=== PATIENT | female | born 1960 | race African-American/Black ===

== ENCOUNTER 2016-07-28 10:28 | Emergency (ER) | payer MEDICARE, MEDICAID ==
[~2016-07-28] VITALS: Ht 167.6 cm; Wt 59.9 kg
[~2016-07-28 10:28] MED LIST: AMLODIPINE BES2.5 MG ORAL; AMOXICILLIN500 MG ORAL; AZITHROMYCIN250 MG ORAL; BACTRIM-DS1 EA ORAL; CARISOPRODOL350 MG ORAL; CYCLOBENZAPRIN7.5 MG ORAL; FLONASE1 SPRAYS; HYDROCODON-ACE1 EA15 ORAL; IBUPROFEN600 MG ORAL; MELOXICAM7.5 MG PO; NAPROXEN500 M2 ORAL; NKM; NORCO 5-325 TA1 EACH ORAL; POLYTRIM OP SOL10 ML OPHTHALM; PROMETHAZINE-D118 ML ORAL; ROBAXIN-750750 MG PO; SOMA350 MG PO; TYLENOL EXTRA500 MG ORAL; ZOLOFT50 MG ORAL
--- NOTE | 2016-07-28 10:54 | Emergency Room Report ---
History of Present Illness General Chief Complaint: Lower Back Pain or Injury Source: Patient Present Illness HPI Patient 55-year-old female who presented after increased low back pain as well as lower extremity pain. Patient reports having bilateral hand pain. Patient states that she's had prior history of cervical disc disease. Patient denies any new symptoms. Patient states she's had pains for at least several months. The patient had previously been seen pain management. She had been previously diagnosed with neuropathy. She reports having a burning tingling sensation to her lower extremities and upper extremities. Allergies: Coded Allergies: No Known Allergies (Unverified , 07/02/12) Patient History Reviewed Nursing Documentation: PMH: Agreed, PSxH: Agreed Nursing Documentation-PMH Past Medical History: No History, Except For Hx Hypertension: No Hx Pacemaker: No Hx Asthma: No Hx COPD: No Hx Diabetes: No Hx Cancer: No Hx Gastrointestinal Problems: No Hx Dialysis: No Hx Cerebrovascular Accident: No Hx Seizures: No Review of Systems All Other Systems: negative except mentioned in HPI Physical Exam Vital Signs Date Time Temp Pulse Resp B/P Pulse Ox O2 Delivery O2 Flow Rate FiO2 07/28/16 10:36 98.1 92 18 124/68 97 Room Air General Appearance: well appearing, no apparent distress, alert, GCS 15, non- toxic Head: normocephalic, atraumatic ENT: hearing grossly normal, normal voice Neck: full range of motion, supple Respiratory: no respiratory distress, speaking full sentences Musculoskeletal: normal inspection, no calf tenderness Neurologic: normal inspection, alert, oriented x3, responsive, vibratory pile driver III-XII nml as tested, normal gait Psychiatric: mood/affect normal Skin: no rash Medical Decision Making Diagnostic Impression: Primary Impression: Exacerbation of chronic back pain ER Course Patient presented for chronic pain. Differential diagnosis included was not limited to neuropathy, vasculitis, cervical stenosis, vitamin deficiency, arthritis among others. Patient's benign exam and does not appear to require any further imaging or laboratory testing at this time. This does not appear to be a change in the patient's long-standing chronic pain. Patient was given Toradol for pain. She was given a lidocaine patch. The patient is advised to follow up with her primary care physician for refills as needed of her pain medication Last Vital Signs Date Time Temp Pulse Resp B/P Pulse Ox O2 Delivery O2 Flow Rate FiO2 07/28/16 10:36 98.1 92 18 124/68 97 Room Air Status: improved Disposition: HOME, SELF-CARE Condition: Stable Dominic Garland July 28, 2016 10:54
[2016-07-28] MEDS ORDERED: Ketorolac 60mg Inj IM ONE (11:00)
[2016-07-28 11:15] VITALS: BP 124/68
== END 2016-07-28 11:20 | disposition home or self-care (01) ==
LOC: EMR 10:55
DX: G89.29 Other chronic pain (principal); M50.30 Other cervical disc degeneration, unspecified cervical region; G62.9 Polyneuropathy, unspecified
CPT/HCPCS: 96372; 99283

== ENCOUNTER 2017-01-26 16:45 | Emergency (ER) | payer OTHER, MEDICAID ==
[~2017-01-26] VITALS: Ht 162.6 cm; Wt 56.7 kg
[2017-01-26 17:01] VITALS: BP 136/79
[2017-01-26] MEDS ORDERED: Morphine Sulfate 4mg/ml Inj IM ONE (17:15)
[2017-01-26] MEDS ORDERED: AUGMENTIN 500-1 EACH ORAL (17:18)
[2017-01-26 17:25] VITALS: BP 136/79
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
== END 2017-01-26 17:43 | disposition home or self-care (01) ==
LOC: EMR 17:05
DX: S81.851A Open bite, right lower leg, initial encounter (principal); M54.40 Lumbago with sciatica, unspecified side; G89.29 Other chronic pain; W54.0XXA Bitten by dog, initial encounter; Y92.9 Unspecified place or not applicable
CPT/HCPCS: 96372; 99284; J2270

== ENCOUNTER 2017-05-12 17:51 | Emergency (ER) | payer OTHER, MEDICAID ==
[~2017-05-12] VITALS: Ht 167.6 cm; Wt 59.0 kg
[~2017-05-12 17:51] MED LIST changes: +AUGMENTIN 500-1 EACH ORAL
[2017-05-12 18:10] VITALS: BP 138/72
[2017-05-12] MEDS ORDERED: Ketorolac 60mg Inj IM ONE (18:30)
--- NOTE | 2017-05-12 18:57 | Emergency Room Report ---
History of Present Illness General Chief Complaint: Lower Back Pain or Injury Present Illness HPI 56-year-old female presents to the emergency department complaining of 9/10 in severity laceration of her chronic back pain and muscle spasms. She reports location of pain is primarily in the lower back however she has some spasms in the neck area and bilateral legs. Patient states that she has previously prescribed Valium or soma for muscle cramping in medication for her pain. Pt. reports today's presentation of symptoms is consistent with previous exacerbations in the past. Patient states that she had a chronic pain management Dr. however she has not been able to fill her medication for several months. Pt. reports her symptoms are have been present for 2 years. Patient states that she had an appointment for "injections" today however the doctor canceled on her. She denies any trauma or fall she denies fevers, chills, night sweats or recent spinal procedures. Denies history of neoplastic disease. She reports hx of neuropathy for which she takes 600Mg Gabapentin daily for. Denies hx of DM. no Claudication, recent travel or immobilization. Denies numbness tingling or loss of sensation or gross motor movements of the extremities, incontinence of bowel or bladder. Denies CP, Palpitations, LOC, AMS , dizziness, Changes in Vision, Sensation, paresthesias, or a sudden severe headache. Allergies: Coded Allergies: No Known Allergies (Unverified , 07/02/12) Patient History Past Medical History: see triage record, other - chronic back pain Past Surgical History: none Pertinent Family History: none Immunizations: UTD Reviewed Nursing Documentation: PMH: Agreed, PSxH: Agreed Nursing Documentation-PMH Hx Hypertension: No Hx Pacemaker: No Hx Asthma: No Hx COPD: No Hx Diabetes: No Hx Cancer: No Hx Gastrointestinal Problems: No Hx Dialysis: No Hx Cerebrovascular Accident: No Hx Seizures: No Review of Systems All Other Systems: negative except mentioned in HPI Physical Exam Vital Signs Date Time Temp Pulse Resp B/P (MAP) Pulse Ox O2 Delivery O2 Flow Rate FiO2 05/12/17 17:56 97.9 99 18 138/72 96 Room Air 97.9 Sp02 EP Interpretation: reviewed, normal General Appearance: no apparent distress, alert, GCS 15, non-toxic Head: normocephalic, atraumatic Eyes: bilateral eye normal inspection, bilateral eye PERRL ENT: hearing grossly normal, normal voice Neck: full range of motion Respiratory: chest non-tender, lungs clear, normal breath sounds, speaking full sentences Cardiovascular #1: regular rate, rhythm, no edema, normal capillary refill Gastrointestinal: non tender, soft Genitourinary: normal inspection, no CVA tenderness Musculoskeletal: back normal, gait/station normal, normal range of motion, tender - TTP to lumbar and cervical paraspinal musculature primarily on the left side. no midlne ttp or spinous process tenderness. pt. ambulatory. Neurologic: alert, oriented x3, responsive, motor strength/tone normal, sensory intact, speech normal, grossly normal Psychiatric: judgement/insight normal Skin: normal color, no rash, warm/dry, well hydrated Medical Decision Making PA Attestation Dr. Fu is my supervising Physician whom patient management has been discussed with. Diagnostic Impression: Primary Impression: Exacerbation of chronic back pain ER Course 56-year-old female presents to the emergency department complaining of 9/10 in severity laceration of her chronic back pain and muscle spasms. She reports location of pain is primarily in the lower back however she has some spasms in the neck area and bilateral legs. Patient states that she has previously prescribed Valium or soma for muscle cramping in medication for her pain. Pt. reports today's presentation of symptoms is consistent with previous exacerbations in the past. Patient states that she had a chronic pain management Dr. however she has not been able to fill her medication for several months. Pt. reports her symptoms are have been present for 2 years. Patient states that she had an appointment for "injections" today however the doctor canceled on her. She denies any trauma or fall she denies fevers, chills, night sweats or recent spinal procedures. Denies history of neoplastic disease. She reports hx of neuropathy for which she takes 600Mg Gabapentin daily for. Denies hx of DM. no Claudication, recent travel or immobilization. Denies numbness tingling or loss of sensation or gross motor movements of the extremities, incontinence of bowel or bladder. Denies CP, Palpitations, LOC, AMS , dizziness, Changes in Vision, Sensation, paresthesias, or a sudden severe headache. Ddx considered: epidural abscess, fracture, sprain/strain, meningitis, spinal chord injury. Vital signs reviewed and are WNL during ED visit. Pt. is afebrile with no signs of infection No new symptoms, and denies recent trauma. No saddle anesthesia noted, Pt. denies incontinence Neurovascular is intact ROM is limited due to pain * Mild Tenderness to palpation to paraspinal muscles of the lower back and cervical area primarily on the left side, no spinous process tenderness, no midline tenderness. *Pt. describes pain today as moderate and radiates across the lower back. ORDERS: none warranted at this time. INTERVENTIONS: - 20mg IM Toradol D/W Pt. that for further pain management is it recommended to consult PCP or a Chronic Pain management doctor. A provider who can safely prescribe controlled substances with close follow up. --Review of her CURES REPORT shows she was regularly rx'd muscle relaxers and opiates by the same each time, and last fill was in January 2017. DISCHARGE: At this time pt. is stable for d/c to home. Will provide printed patient care instructions, and any necessary prescriptions. Care plan and follow up instructions have been discussed with the patient prior to discharge. Last Vital Signs Date Time Temp Pulse Resp B/P (MAP) Pulse Ox O2 Delivery O2 Flow Rate FiO2 05/12/17 18:53 97.9 05/12/17 18:10 18 138/72 96 Room Air 05/12/17 17:56 99 Disposition: HOME, SELF-CARE Condition: Stable Scripts Lidocaine (Lidoderm) 1 Each Adh..patch 1 PATCH TOPIC DAILY, #30 PATCH 0 Refills Patch(es) may remain in place for up to 12 hours in any 24-hour period. Prov: Lucila Donaldson 05/12/17 Methocarbamol* (ROBAXIN-750*) 750 Mg Tablet 750 MG PO QID, #28 TAB 0 Refills Prov: Lucila Donaldson 05/12/17 Patient Instructions: Back Pain, Adult Additional Instructions: Take medications as directed. Follow up with a Primary Care Provider in 3-5 days, even if your symptoms have resolved. --Please review list of primary care clinics, if you do not already have a primary care provider Return sooner to ED if new symptoms occur, or current symptoms become worse. Do not drink alcohol, drive, or operate heavy machinery while taking Robaxin as this may cause drowsiness. - Please note that this Emergency Department Report was dictated using [employer] tightener technology software, occasionally this can lead to erroneous entry secondary to interpretation by the dictation equipment. Lucila Donaldson May 12, 2017 18:57
[2017-05-12] MEDS ORDERED: ROBAXIN-750750 MG PO (18:59)
[2017-05-12] MEDS ORDERED: LIDODERM700 M1 TOPIC (18:59)
[2017-05-12 19:13] VITALS: BP 138/72
== END 2017-05-12 19:07 | disposition home or self-care (01) ==
LOC: EMR 19:07
DX: M54.5 Low back pain (principal); G89.29 Other chronic pain
CPT/HCPCS: 96372; 99283

== ENCOUNTER 2017-05-25 08:27 | Emergency (ER) | payer OTHER, MEDICAID ==
[~2017-05-25] VITALS: Ht 167.6 cm; Wt 59.9 kg
[~2017-05-25 08:27] MED LIST changes: +LIDODERM700 M1 TOPIC
[2017-05-25 09:08] VITALS: BP 130/76
[2017-05-25] MEDS ORDERED: Ketorolac 60mg Inj IM ONE (09:15)
[2017-05-25] MEDS ORDERED: LIDOCAINE700 M1 TP (09:16)
[2017-05-25 09:34] VITALS: BP 130/76
--- NOTE | 2017-05-25 09:37 | Emergency Room Report ---
History of Present Illness General Chief Complaint: Pain Source: Patient, Medical Record Present Illness HPI Patient is a 56-year-old female presented after increased pain to her hands as well as to her feet. Patient reports having prior history of back pain is currently in pain management. Patient stated that she was here several days ago and was given pain injection which helped somewhat. Patient had reported prior history of neuropathy. She denies any nausea or vomiting. She had not been having any chest pain. She reports having chronic low back pain. She denies any bowel or bladder dysfunction. Allergies: Coded Allergies: No Known Allergies (Unverified , 07/02/12) Patient History Past Medical History: see triage record Last Menstrual Period: menopause Reviewed Nursing Documentation: PMH: Agreed, PSxH: Agreed Nursing Documentation-PMH Past Medical History: No History, Except For Hx Hypertension: No Hx Pacemaker: No Hx Asthma: No Hx COPD: No Hx Diabetes: No Hx Cancer: No Hx Gastrointestinal Problems: No Hx Dialysis: No Hx Cerebrovascular Accident: No Hx Seizures: No Review of Systems All Other Systems: negative except mentioned in HPI Physical Exam Vital Signs Date Time Temp Pulse Resp B/P (MAP) Pulse Ox O2 Delivery O2 Flow Rate FiO2 05/25/17 08:35 98.0 89 18 130/76 97 Room Air 98.1 General Appearance: well appearing, no apparent distress, alert, GCS 15, Chronically Ill Head: normocephalic, atraumatic ENT: hearing grossly normal, normal voice Neck: full range of motion, supple Respiratory: no respiratory distress, speaking full sentences Cardiovascular #1: normal peripheral pulses, regular rate, rhythm, no edema Gastrointestinal: normal inspection, soft Musculoskeletal: normal inspection, no calf tenderness Neurologic: normal inspection, alert, oriented x3, responsive, title searcher III-XII nml as tested, normal gait Psychiatric: mood/affect normal Skin: no rash, other - cracking to skin of fingers, no lacerations Medical Decision Making Diagnostic Impression: Primary Impression: Exacerbation of chronic back pain ER Course Patient presented for increased generalized pain. Differential diagnosis includes was not limited to medication withdrawal, arthritis, fracture, infection among others. Patient has a benign exam and does not appear to require any further imaging or laboratory testing at this time. Patient appears to have exacerbation of chronic pain. She was given Toradol for pain as well as a lidocaine patch.The patient was advised to follow up with her pain management doctor. Last Vital Signs Date Time Temp Pulse Resp B/P (MAP) Pulse Ox O2 Delivery O2 Flow Rate FiO2 05/25/17 09:17 98.1 05/25/17 09:08 18 130/76 97 Room Air 05/25/17 08:35 89 Status: improved Disposition: HOME, SELF-CARE Condition: Stable Scripts Lidocaine (Lidocaine) 1 Each Adh..patch 5 % TP DAILY, #7 PATCH Prov: Dominic Garland 05/25/17 Referrals: NOT CHOSEN IPA/MD,REFERRING (PCP) Patient Instructions: Chronic Pain Dominic Garland May 25, 2017 09:37
== END 2017-05-25 09:35 | disposition home or self-care (01) ==
LOC: EMR 09:30
DX: M54.9 Dorsalgia, unspecified (principal); G89.29 Other chronic pain
CPT/HCPCS: 96372; 99283

== ENCOUNTER 2017-06-03 19:22 | Emergency (ER) | payer OTHER, MEDICAID ==
[~2017-06-03] VITALS: Ht 167.6 cm; Wt 59.0 kg
[~2017-06-03 19:22] MED LIST changes: +LIDOCAINE700 M1 TP
[2017-06-03] MEDS ORDERED: UNOBMED (19:40)
[2017-06-03 20:00] VITALS: BP 152/78
--- NOTE | 2017-06-03 20:35 | Emergency Room Report ---
History of Present Illness General Chief Complaint: Pain Source: Patient Present Illness HPI 56 yo female patient presents to ER complaining of right hip pain s/p accident. Patient reports walking when foot got caught in sidewalk and she fell to her knees and felt her right hip twist; denies knee pain. Denies dysuria, hematuria. Denies pain with bowl movements. Repots pain with ambulation; normally walks with cane secondary to chronic back pain. Denies hitting head, denies LOC. Denies chest pain, SOB, fever. Patient also complains of lip swelling. Reports using Clorox disinfectant wipe on mouth. Denies pain, reports swelling has gone down. Denies burning or numbness. Allergies: Coded Allergies: No Known Allergies (Unverified , 07/02/12) Patient History Past Medical History: see triage record Now: No Reviewed Nursing Documentation: PMH: Agreed, PSxH: Agreed Nursing Documentation-PMH Past Medical History: No History, Except For Hx Hypertension: No Hx Pacemaker: No Hx Asthma: No Hx COPD: No Hx Diabetes: No Hx Cancer: No Hx Gastrointestinal Problems: No Hx Dialysis: No Hx Cerebrovascular Accident: No Hx Seizures: No Review of Systems All Other Systems: negative except mentioned in HPI Physical Exam Vital Signs Date Time Temp Pulse Resp B/P (MAP) Pulse Ox O2 Delivery O2 Flow Rate FiO2 06/03/17 19:36 98.5 92 18 152/78 96 Room Air 98.4 Sp02 EP Interpretation: reviewed, normal General Appearance: well appearing, no apparent distress, alert, GCS 15, non- toxic Head: normocephalic, atraumatic Eyes: bilateral eye normal inspection, bilateral eye PERRL, bilateral eye EOMI ENT: hearing grossly normal, normal pharynx, no angioedema, normal voice, uvula midline, moist mucus membranes, other - mild upper lip edema, no erythema , no vesicles, no open wounds, no warmth to palpation Neck: full range of motion Respiratory: lungs clear, normal breath sounds, no rhonchi, no respiratory distress, no accessory muscle use, no wheezing, speaking full sentences Cardiovascular #1: regular rate, rhythm, no edema Cardiovascular #2: 2+ dorsalis pedis (R), 2+ dorsalis pedis (L) Gastrointestinal: non tender, soft, no mass, non-distended, no guarding, no hernia, no rebound Musculoskeletal: back normal, digits/nails normal, non-tender, no calf tenderness, pelvis stable, decreased range of motion - secondary to pain, other - BVI, tender - right hip Neurologic: alert, oriented x3, responsive, motor strength/tone normal, sensory intact Psychiatric: mood/affect normal Skin: no rash Lymphatic: no adenopathy Medical Decision Making PA Attestation Dr. Dukes is my supervising Physician whom patient management has been discussed with. Diagnostic Impression: Primary Impression: Swollen lip Additional Impressions: Fibroid Hip pain ER Course Pt. presents to the ED c/o hip pain. Ddx considered but are not limited to fracture, sprain, strain, contusion, hernia. Low suspicion for fracture, patient ambulating and able to place weight on hip. DDx considered but are not limited to contact dermatitis, allergic reaction, angioedema. Low suspicion for angioedema, no tongue swelling, no voice changes, no difficulty talking or eating. Patient denies burning, itching or pain. Vital signs: are WNL, pt. is afebrile Ordered X-ray and pain medication. ER COURSE An X-ray of the right hip was ordered, results show no acute fracture, per the official reading from [facility]. X-ray shows fibroid. Patient reports hx of fibroid. Instruct patient to follow up with OBGYN. Patient instructed to take Tylenol for pain symptoms, WBAT and followup with primary care provider to discuss ortho referral. Patient seen and evaluated by Dr. Dukes, agrees to above treatment and plan. Informed patient lip swelling likely localized reaction. Take Benadryl for inflammation symptoms. F/u with PCP for further treatment and referral to derm as needed. May continue to apply Vaseline as needed. DISCHARGE: -Rx provided for Tylenol for pain symptoms. At this time pt. is stable for d/c to home. Patient resting comfortably in no acute distress, nontoxic appearing, talking and smiling without difficulty. Will provide printed patient care instructions, and any necessary prescriptions. Patient instructed to follow with primary care provider in 3 - 5 days and to request further orthopedic follow-up. Followup with PCP for lip swelling, discuss referral to ortho as needed. Do not use Clorox cleaning wipes on face again. Care plan and follow up instructions have been discussed with the patient prior to discharge. Patient instructed on RICE method: rest, ice, compression, elevation. Patient instructed to WBAT. Take medications as directed. Patient questions asked and answered. Patient reports understanding and agreement to treatment plan. ER precautions given, patient instructed to return to ER immediately for any new or worsening of symptoms. Other X-Ray Diagnostic Results Other X-Ray Diagnostic Results : X-Ray ordered: pelvis # of Views/Limited Vs Complete: 3 View Indication: Pain EP Interpretation: Yes PA Xray: Interpretation reviewed, by supervising MD, and agrees with findings. Interpretation: no dislocation, no soft tissue swelling, no fractures, other - calcified firboid Impression: No acute disease PA Scribe Text Ash Adair PA-C Last Vital Signs Date Time Temp Pulse Resp B/P (MAP) Pulse Ox O2 Delivery O2 Flow Rate FiO2 06/03/17 19:36 98.5 92 18 152/78 96 Room Air 98.4 Disposition: HOME, SELF-CARE Condition: Stable Scripts Diphenhydramine Hcl (BENADRYL ALLERGY) 25 Mg Tablet 25 MG PO DAILY for 7 Days, #15 TAB Prov: Scott Adair 06/03/17 Acetaminophen* (TYLENOL EXTRA STRENGTH*) 500 Mg Tablet 500 MG ORAL Q8H Y for Prn Headache/Temp > 101, #30 TAB 0 Refills Prov: Scott Adair 06/03/17 Patient Instructions: Hip Pain, Uterine Fibroids, [id number] Additional Instructions: Patient instructed to follow up with primary care provider and discuss further referral to orthopedics. Patient instructed on RICE method: rest, ice, compression, elevation. Patient instructed to WBAT. Followup with OBGYN for monitoring of fibroids. Followup with primary care provider for lip swelling. Continue to use Vaseline for dryness. Do not rub nose or mouth. Avoid touching face. Take medications as directed. Patient questions asked and answered. ER precautions given, patient instructed to return to ER immediately for any new or worsening of symptoms. Scott Adair Jun 03, 2017 20:35
[2017-06-03] MEDS ORDERED: TYLENOL EXTRA500 MG ORAL (21:13)
[2017-06-03] MEDS ORDERED: BENADRYL ALLERG25 M1 PO (21:13)
[2017-06-03 21:30] VITALS: BP 142/77
[2017-06-03 21:34] VITALS: BP 142/77
--- NOTE | 2017-06-04 11:11 | Diagnostic Imaging Report ---
Indication: Pain Technique: AP view the pelvis, also AP view of the pelvis with frog-lateral positioning of both hips Comparison: none Findings: No acute fractures. No dislocations. The joint spaces are preserved. There are degenerative changes of the lumbosacral junction. Large atrial calcification projects centrally within the pelvis, presumably an old degenerated fibroid. Fallopian tube calcifications are seen bilaterally Impression: No acute process Calcified uterine fibroid
== END 2017-06-03 21:34 | disposition home or self-care (01) ==
LOC: EMR 20:02
DX: M25.551 Pain in right hip (principal); R60.0 Localized edema; D25.9 Leiomyoma of uterus, unspecified
CPT/HCPCS: 73521; 99283; 99284

== ENCOUNTER 2017-06-29 14:52 | Emergency (ER) | payer MEDICARE, MEDICAID ==
[~2017-06-29] VITALS: Ht 167.6 cm; Wt 59.9 kg
[~2017-06-29 14:52] MED LIST changes: +BENADRYL ALLERG25 M1 PO; +UNOBMED
[2017-06-29 15:00] VITALS: BP 103/65
--- NOTE | 2017-06-29 15:22 | Emergency Room Report ---
History of Present Illness General Chief Complaint: General Complaint Source: Patient, Medical Record Present Illness HPI 56yo F p/w swelling in both legs, right greater than left, for the last 2 days She reports no pain, but she does report she has a numbness sensation to both legs which has been worsening for last 2 days, she has chronic numbness and tingling from spinal stenosis however She denies bowel or bladder incontinence, denies fever, denies trauma She denies chest pain, shortness of breath, syncope, any other complaints at all Allergies: Coded Allergies: No Known Allergies (Unverified , 07/02/12) Patient History Past Medical History: see triage record Reviewed Nursing Documentation: PMH: Agreed; PSxH: Agreed Nursing Documentation-PMH Past Medical History: No History, Except For Hx Hypertension: No Hx Pacemaker: No Hx Asthma: No Hx COPD: No Hx Diabetes: No Hx Cancer: No Hx Gastrointestinal Problems: No Hx Dialysis: No Hx Cerebrovascular Accident: No Hx Seizures: No Review of Systems All Other Systems: negative except mentioned in HPI Physical Exam Vital Signs Date Time Temp Pulse Resp B/P (MAP) Pulse Ox O2 Delivery O2 Flow Rate FiO2 06/29/17 14:57 98.1 101 18 103/65 94 Room Air 98.1 Sp02 EP Interpretation: reviewed, normal General Appearance: no apparent distress, alert, non-toxic Head: normocephalic Eyes: bilateral eye normal inspection, bilateral eye PERRL, bilateral eye EOMI ENT: normal ENT inspection, hearing grossly normal, normal pharynx, no angioedema, normal voice, moist mucus membranes Neck: normal inspection, full range of motion, supple, supple/symm/no masses Respiratory: chest non-tender, lungs clear, normal breath sounds, chest symmetrical, palpation of chest normal Cardiovascular #1: normal peripheral pulses, regular rate, rhythm Cardiovascular #2: 2+ radial (R), 2+ radial (L) Gastrointestinal: normal inspection, non tender, soft, no mass, no guarding, no rebound Rectal: deferred Genitourinary: normal inspection, no CVA tenderness Musculoskeletal: back normal, gait/station normal, normal range of motion, non- tender, no calf tenderness, Carlitos's Sign negative, swelling - Right greater than left edema to distal tibia Neurologic: alert, responsive, 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, motor strength/tone normal, sensory intact, speech normal Psychiatric: judgement/insight normal, memory normal, mood/affect normal, no suicidal/homicidal ideation Skin: normal color, no rash, warm/dry, normal turgor Lymphatic: no adenopathy Medical Decision Making Reaction to Intervention: No change ER Course Patient with assymetric B/L LE edema with paresthesias US negative for DVT, labs show mild elevation of creatinine compared to previous metabolic panel, but normal electrolytes and no clinical dehydration Patient was given one dose of lasix 40mg IV here, Possible diff dx is CRPS, positional dependent edema, mild STEPHANIE vs. chronic renal insufficiency (more likely), BNP, LFT's slightly elevated, but no clinical fluid overload, no abd pain, and will be dc'd with f/u with PMD CT/MRI/US Diagnostic Results CT/MRI/US Diagnostic Results : Imaging Test Ordered: duplex venous B/L LE Impression negative for DVT B/L LE Last Vital Signs Date Time Temp Pulse Resp B/P (MAP) Pulse Ox O2 Delivery O2 Flow Rate FiO2 06/29/17 15:00 98.1 18 103/65 94 Room Air 98.1 06/29/17 14:57 101 Status: improved Disposition: HOME, SELF-CARE Condition: Stable Scripts Gabapentin* (GABAPENTIN*) 300 Mg Capsule 300 MG ORAL THREE TIMES A DAY for 7 Days, CAP 0 Refills Prov: THEA NANCE M.D 06/29/17 THEA NANCE M.D Jun 29, 2017 15:22
[2017-06-29] MEDS ORDERED: Ketorolac 30mg Inj IM ONE (15:30)
[2017-06-29 15:58] LABS: ANION GAP 11 mmol/L (5-15); BLOOD UREA NITROGEN 36 mg/dL (7-18); CALCIUM 6.5 MG/DL (8.5-10.1); CARBON DIOXIDE 23 MMOL/L (21-32); CHLORIDE 99 MMOL/L (98-107); CREATININE 2.2 MG/DL (0.55-1.30); POTASSIUM 4.1 MMOL/L (3.5-5.1); SODIUM 133 MMOL/L (136-145)
[2017-06-29 15:59] LABS: BASOPHILS % (AUTO) 1.1 % (0.0-2.0); EOSINOPHILS % (AUTO) 0.5 % (0.0-3.0); HEMATOCRIT 28.1 % (37.0-47.0); HEMOGLOBIN 10.8 G/DL (12.0-16.0); LYMPHOCYTES % (AUTO) 29.9 % (20.0-45.0); MEAN CORPUSCULAR VOLUME 101 FL (80-99); MONOCYTES % (AUTO) 8.6 % (1.0-10.0); PLATELET COUNT 101 K/UL (150-450); RED BLOOD COUNT 2.78 M/UL (4.20-5.40); RED CELL DISTRIBUTION WIDTH 13.6 % (11.6-14.8); WHITE BLOOD COUNT 4.5 K/UL (4.8-10.8)
[2017-06-29] MEDS ORDERED: GABAPENTIN300 MG ORAL (16:49)
[2017-06-29 17:18] LABS: ALANINE AMINOTRANSFERASE 95 U/L (12-78); ASPARTATE AMINO TRANSFERASE 124 U/L (15-37); BILIRUBIN,TOTAL 0.6 MG/DL (0.2-1.0)
[2017-06-29 17:19] LABS: ALBUMIN 2.8 G/DL (3.4-5.0); ALKALINE PHOSPHATASE 157 U/L (46-116)
[2017-06-29 17:21] LABS: ALBUMIN/GLOBULIN RATIO 0.8 (1.0-2.7)
[2017-06-29 17:54] VITALS: BP 143/74
== END 2017-06-29 18:11 | disposition home or self-care (01) ==
LOC: EMR 16:00
DX: R22.43 Localized swelling, mass and lump, lower limb, bilateral (principal); R20.2 Paresthesia of skin
CPT/HCPCS: 36415; 80053; 83880; 85025; 93970; 96372; 96374; 99284; J1885; J1940

== ENCOUNTER 2017-08-28 13:49 | Emergency (ER) | payer MEDICARE, MEDICAID ==
[~2017-08-28] VITALS: Ht 162.6 cm; Wt 59.0 kg
[~2017-08-28 13:49] MED LIST changes: +GABAPENTIN300 MG ORAL
[2017-08-28 14:04] VITALS: BP 120/58
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
[2017-08-28 15:16] LABS: BILIRUBIN, URINE NEGATIVE (NEGATIVE); GLUCOSE, URINE (UA) NEGATIVE (NEGATIVE); KETONES,URINE NEGATIVE (NEGATIVE); LEUKOCYTE ESTERASE ,URINE 3+ (NEGATIVE); NITRITE,URINE NEGATIVE (NEGATIVE); PH,URINE 6.5 (4.5-8.0); PROTEIN,URINE NEGATIVE (NEGATIVE); UROBILINOGEN,URINE NORMAL MG/DL (0.0-1.0)
[2017-08-28 15:29] LABS: APPEARANCE,URINE CLEAR; BASOPHILS % (AUTO) 1.5 % (0.0-2.0); COLOR,URINE YELLOW; EOSINOPHILS % (AUTO) 3.1 % (0.0-3.0); HEMATOCRIT 32.9 % (37.0-47.0); HEMOGLOBIN 10.5 G/DL (12.0-16.0); LYMPHOCYTES % (AUTO) 21.4 % (20.0-45.0); MEAN CORPUSCULAR VOLUME 101 FL (80-99); MONOCYTES % (AUTO) 8.2 % (1.0-10.0); NEUTROPHILS % (AUTO) 65.8 % (45.0-75.0); PLATELET COUNT 172 K/UL (150-450); RED BLOOD COUNT 3.25 M/UL (4.20-5.40); RED CELL DISTRIBUTION WIDTH 13.9 % (11.6-14.8); WHITE BLOOD COUNT 6.5 K/UL (4.8-10.8)
[2017-08-28 15:33] LABS: ANION GAP 10 mmol/L (5-15); BLOOD UREA NITROGEN 28 mg/dL (7-18); CALCIUM 9.4 MG/DL (8.5-10.1); CARBON DIOXIDE 29 MMOL/L (21-32); CHLORIDE 99 MMOL/L (98-107); CREATININE 1.6 MG/DL (0.55-1.30); POTASSIUM 4.7 MMOL/L (3.5-5.1); SODIUM 138 MMOL/L (136-145)
[2017-08-28 15:37] LABS: ALANINE AMINOTRANSFERASE 44 U/L (12-78); ALBUMIN 3.6 G/DL (3.4-5.0); ALBUMIN/GLOBULIN RATIO 0.8 (1.0-2.7); ALKALINE PHOSPHATASE 154 U/L (46-116); ASPARTATE AMINO TRANSFERASE 59 U/L (15-37); BILIRUBIN,TOTAL 0.4 MG/DL (0.2-1.0); CREATINE KINASE 178 U/L (26-308)
--- NOTE | 2017-08-28 16:25 | Diagnostic Imaging Report ---
EXAM: XR Chest, 1 View CLINICAL HISTORY: DYSPHAGIA TECHNIQUE: Frontal view of the chest. COMPARISON: Chest x-ray dated 11/12/14 FINDINGS: Lungs: Unremarkable. The lungs appear clear. No confluent pulmonary opacities. Pleural space: Unremarkable. No pneumothorax. Heart: Unremarkable. No cardiomegaly. Mediastinum: Unremarkable. Bones/joints: Unremarkable. Upper abdomen: Mild elevation of the left hemidiaphragm. IMPRESSION: Mild elevation of the left hemidiaphragm.
[2017-08-28] MEDS ORDERED: PEPCID AC20 M2 PO (16:56)
[2017-08-28] MEDS ORDERED: TYLENOL325 MG ORAL (16:56)
[2017-08-28] MEDS ORDERED: MAALOX MAXIMUM355 M1 PO (16:56)
[2017-08-28 17:06] VITALS: BP 120/58
--- NOTE | 2017-08-31 14:14 | Cardiology Report ---
APPROVED REPORT EKG Measurement Heart [id number] Normal sinus rhythm with sinus arrhythmia Moderate voltage criteria for LVH, may be normal variant Borderline ECG
== END 2017-08-28 17:06 | disposition home or self-care (01) ==
LOC: EMR 16:00
DX: F39 Unspecified mood [affective] disorder (principal); F14.10 Cocaine abuse, uncomplicated; N28.9 Disorder of kidney and ureter, unspecified
CPT/HCPCS: 36415; 71045; 80053; 80307; 81003; 82550; 83605; 85025; 93005; 99284; G0480; 80329

== ENCOUNTER 2018-01-04 16:11 | Emergency (ER) | payer MEDICARE, MEDICAID ==
[~2018-01-04] VITALS: Ht 152.4 cm; Wt 64.4 kg
[~2018-01-04 16:11] MED LIST changes: +MAALOX MAXIMUM355 M1 PO; +PEPCID AC20 M2 PO; +TYLENOL325 MG ORAL
[2018-01-04 16:34] VITALS: BP 166/90
--- NOTE | 2018-01-04 16:54 | Emergency Room Report ---
History of Present Illness General Chief Complaint: General Complaint Source: Patient, Medical Record Present Illness HPI 57-year-old female patient presents ER complaining of "electrical twitches "all over her body. Patient reports that she began taking Lyrica a few days ago and accident to experience the symptoms 2 days ago. Patient reports that she has a history of radiculopathy that she used to take gabapentin for, states that her doctor switched her to Lyrica "because he said so", perviously was taking Gabapentin. Reports palpitations during this time. Denies history of [place] or heart disease. Patient reports she is scheduled to have surgery on her back end of the month to remove the "deadened nerves". Patient denies bowel or bladder incontinence. Denies dysuria, hematuria. Denies fever, vertigo, vision changes. Denies history of seizure disorder. Reports she smokes marijuana. Denies drinking or other drug use. reports history of anxiety, taking benzodiazepine medication for anxiety symptoms. Denies thoughts of hurting herself or others at this time. Reports being seen by therapist. Allergies: Coded Allergies: No Known Allergies (Unverified , 01/04/18) Patient History Past Medical History: see triage record Reviewed Nursing Documentation: PMH: Agreed; PSxH: Agreed Nursing Documentation-PMH Past Medical History: No History, Except For Hx Hypertension: No Hx Pacemaker: No Hx Asthma: No Hx COPD: No Hx Diabetes: No Hx Cancer: No Hx Gastrointestinal Problems: No Hx Dialysis: No Hx Cerebrovascular Accident: No Hx Seizures: No Review of Systems All Other Systems: negative except mentioned in HPI Physical Exam Vital Signs Date Time Temp Pulse Resp B/P (MAP) Pulse Ox O2 Delivery O2 Flow Rate FiO2 01/04/18 16:25 98.1 102 15 166/90 99 98.1 Sp02 EP Interpretation: reviewed, normal General Appearance: well appearing, no apparent distress, alert, GCS 15, non- toxic Head: normocephalic, atraumatic Eyes: bilateral eye normal inspection, bilateral eye PERRL ENT: hearing grossly normal, normal pharynx, no angioedema, normal voice, TMs + canals normal, uvula midline, moist mucus membranes Neck: full range of motion, no bony tend Respiratory: lungs clear, normal breath sounds, no rhonchi, no respiratory distress, no accessory muscle use, no wheezing, speaking full sentences Cardiovascular #1: regular rate, rhythm, no edema Cardiovascular #2: 2+ radial (R), 2+ radial (L) Gastrointestinal: non tender, soft, no mass, non-distended, no guarding, no rebound Genitourinary: no CVA tenderness Musculoskeletal: back normal, digits/nails normal, gait/station normal, normal range of motion, non-tender, no calf tenderness, Carlitos's Sign negative Neurologic: alert, oriented x3, responsive, 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 Bean is my supervising Physician whom patient management has been discussed with. Diagnostic Impression: Primary Impression: Muscle twitching Additional Impressions: Palpitations Radiculopathy ER Course Pt. presents to the ED c/o twitching and palpitations. Ddx considered but are not limited to [place], CHF, left-sided balance, medication change, anxiety, stress, radiculopathy, chronic pain, menopause, ICH. no focal neuro deficits, cranial nerves intact as tested, low suspicion for ICH , does not require CT head at this time. due to the patient complaints of palpitations, will order EKG and basic labs to rule out underlying etiology. no twitching symptoms observed in the ER. Vital signs: are WNL, pt. is afebrile ER COURSE: EKG shows no ST elevations or atrial fibrillation, chest x-ray shows no acute disease, troponin negative, low suspicion for [place] or CHF, denies chest pain or shortness of breath, do not believe patient has cardiac etiology symptoms at this time. CBC and CMP elevation WBCs, no electrolyte abnormalities, mild depression of H&H , consistent with previous visits, does not require acute intervention at this time. Patient advised to follow-up with PCP to discuss. UDS positive for benzodiazepines, patient has history of anxiety that she takes benzos for. UA no signs of infection. Does not require treatment at this time. No fasciculations or muscles twitches or tremors noted on physical exam while in the ER. patient has full range of motion of extremities, physical benign cranial nerves intact, no focal deficits. Symptoms may be related to new medication use, will provide patient with gabapentin medication previously taken, advised to discontinue Lyrica. Follow up with her primary care provider discussed medication use. Follow-up mental health professional discuss anxiety symptoms. Do not believe patient is a danger to herself or others at this time. follow-up with primary care provider to discuss further treatment and referral for palpitations. Discuss need for Holter monitor. Discuss referral to cardiology. Follow-up with physical therapy. Take Tylenol for pain symptoms. Follow-up with operation specialist to discuss radiculopathy pain DISCHARGE: Rx provided for Gabapentin At this time pt is stable for d/c to home. Patient is resting comfortably, in no acute distress, nontoxic appearing, talking without difficulty. Patient to take medications as instructed Will provide with patient care instructions and any necessary prescriptions. Care plan and follow-up instructions provided. Patient instructed to follow-up with primary care provider in 3 - 5 days. Patient questions asked and answered. Patient reports understanding and agreement to treatment plan. ER precautions given. Patient instructed to return to ER immediately for any new or worsening of symptoms including but not limited to increasing SOB, persistent fever, chest pain, intractable vomiting. - Please note that this Emergency Department Report was dictated using [employer] professional coder technology software, occasionally this can lead to erroneous entry secondary to interpretation by the dictation equipment. Labs Test 01/04/18 17:00 White Blood Count 5.6 K/UL (4.8-10.8) Red Blood Count 3.60 M/UL (4.20-5.40) Hemoglobin 10.9 G/DL (12.0-16.0) Hematocrit 34.0 % (37.0-47.0) Mean Corpuscular Volume 94 FL (80-99) Mean Corpuscular Hemoglobin 30.2 PG (27.0-31.0) Mean Corpuscular Hemoglobin Concent 32.0 G/DL (32.0-36.0) Red Cell Distribution Width 12.0 % (11.6-14.8) Platelet Count 124 K/UL (150-450) Mean Platelet Volume 12.3 FL (6.5-10.1) Neutrophils (%) (Auto) 66.7 % (45.0-75.0) Lymphocytes (%) (Auto) 18.6 % (20.0-45.0) Monocytes (%) (Auto) 8.8 % (1.0-10.0) Eosinophils (%) (Auto) 2.5 % (0.0-3.0) Basophils (%) (Auto) 3.3 % (0.0-2.0) Urine Color Pale yellow Urine Appearance Clear Urine pH 5 (4.5-8.0) Urine Specific [place] 1.010 (1.005-1.035) Urine Protein 1+ (NEGATIVE) Urine Glucose (UA) Negative (NEGATIVE) Urine Ketones Negative (NEGATIVE) Urine Blood Negative (NEGATIVE) Urine Nitrite Negative (NEGATIVE) Urine Bilirubin Negative (NEGATIVE) Urine Urobilinogen Normal MG/DL (0.0-1.0) Urine Leukocyte Esterase 2+ (NEGATIVE) Urine RBC 0-2 /HPF (0 - 2) Urine WBC 2-4 /HPF (0 - 2) Urine Squamous Epithelial Cells Few /LPF (NONE/OCC) Urine Bacteria Few /HPF (NONE) Sodium Level 138 MMOL/L (136-145) Potassium Level 5.1 MMOL/L (3.5-5.1) Chloride Level 105 MMOL/L (98-107) Carbon Dioxide Level 25 MMOL/L (21-32) Anion Gap 8 mmol/L (5-15) Blood Urea Nitrogen 19 mg/dL (7-18) Creatinine 1.3 MG/DL (0.55-1.30) Estimat Glomerular Filtration Rate 51.1 mL/min (>60) Glucose Level 113 MG/DL (74-106) Calcium Level 9.1 MG/DL (8.5-10.1) Total Bilirubin 0.2 MG/DL (0.2-1.0) Aspartate Amino Transf (AST/SGOT) 36 U/L (15-37) Alanine Aminotransferase (ALT/SGPT) 32 U/L (12-78) Alkaline Phosphatase 91 U/L (46-116) Troponin I 0.000 ng/mL (0.000-0.056) Total Protein 7.4 G/DL (6.4-8.2) Albumin 3.7 G/DL (3.4-5.0) Globulin 3.7 g/dL Albumin/Globulin Ratio 1.0 (1.0-2.7) Urine Opiates Screen Negative (NEGATIVE) Urine Barbiturates Screen Negative (NEGATIVE) Phencyclidine (PCP) Screen Negative (NEGATIVE) Urine Amphetamines Screen Negative (NEGATIVE) Urine Benzodiazepines Screen Positive (NEGATIVE) Urine Cocaine Screen Negative (NEGATIVE) Urine Marijuana (THC) Screen Negative (NEGATIVE) EKG Diagnostic Results Rate: normal Rhythm: NSR ST Segments: no acute changes ASA given to the pt in ED: No PA Scribe Colten Adair PA-C Rhythm Strip Diag. Results EP Interpretation: yes Rate: 75 Rhythm: NSR, no PVC's, no ectopy Other Impression hyperacute R waves in leads I and II BRANDEN Scribe Colten Adair PA-C Chest X-Ray Diagnostic Results Chest X-Ray Diagnostic Results : Chest X-Ray Ordered: Yes # of Views/Limited/Complete: 1 View Indication: Chest Pain EP Interpretation: Yes PA Xray: Interpretation reviewed, by supervising MD, and agrees with findings. Interpretation: no consolidation, no effusion, no pneumothorax, no acute cardiopulmonary disease Impression: No acute disease BRANDEN Scribe Colten Adair PA-C Last Vital Signs Date Time Temp Pulse Resp B/P (MAP) Pulse Ox O2 Delivery O2 Flow Rate FiO2 01/04/18 16:34 98.1 15 166/90 99 98.1 01/04/18 16:25 102 Disposition: HOME, SELF-CARE Condition: Stable Scripts Gabapentin* (GABAPENTIN*) 300 Mg Capsule 300 MG ORAL THREE TIMES A DAY, #15 CAP 0 Refills Prov: Scott Adair 01/04/18 Patient Instructions: Cervical Radiculopathy, [id number], Essential Tremor, Muscle Cramps and Spasms, [id number], Palpitations, [id number], Sciatica, [id number], Tremor Additional Instructions: Followup with primary care provider in 3 -5 days. Discuss referral to cardiology for palpitations. Discuss need for outpatient cardiac monitoring. Follow-up with mental health professional to discuss anxiety symptoms. Discuss medication change from Lyrica to gabapentin, discuss referral to pain management as needed. Follow-up with physical therapy. Discuss further labs and treatments as needed to evaluate for twitching symptoms. Take medications as directed. Patient questions asked and answered. ER precautions given, patient instructed to return to ER immediately for any new or worsening of symptoms. Scott Adair Jan 04, 2018 16:54
[2018-01-04 17:34] LABS: APPEARANCE,URINE CLEAR; BILIRUBIN, URINE NEGATIVE (NEGATIVE); COLOR,URINE PALE YELLOW; GLUCOSE, URINE (UA) NEGATIVE (NEGATIVE); KETONES,URINE NEGATIVE (NEGATIVE); LEUKOCYTE ESTERASE ,URINE 2+ (NEGATIVE); NITRITE,URINE NEGATIVE (NEGATIVE); PH,URINE 5 (4.5-8.0); PROTEIN,URINE 1+ (NEGATIVE); UROBILINOGEN,URINE NORMAL MG/DL (0.0-1.0)
[2018-01-04 17:36] LABS: BASOPHILS % (AUTO) 3.3 % (0.0-2.0); EOSINOPHILS % (AUTO) 2.5 % (0.0-3.0); HEMOGLOBIN 10.9 G/DL (12.0-16.0); LYMPHOCYTES % (AUTO) 18.6 % (20.0-45.0); MEAN CORPUSCULAR VOLUME 94 FL (80-99); MONOCYTES % (AUTO) 8.8 % (1.0-10.0); NEUTROPHILS % (AUTO) 66.7 % (45.0-75.0); PLATELET COUNT 124 K/UL (150-450); WHITE BLOOD COUNT 5.6 K/UL (4.8-10.8)
[2018-01-04 17:38] LABS: ANION GAP 8 mmol/L (5-15); BLOOD UREA NITROGEN 19 mg/dL (7-18); CALCIUM 9.1 MG/DL (8.5-10.1); CARBON DIOXIDE 25 MMOL/L (21-32); CHLORIDE 105 MMOL/L (98-107); CREATININE 1.3 MG/DL (0.55-1.30); POTASSIUM 5.1 MMOL/L (3.5-5.1); SODIUM 138 MMOL/L (136-145)
[2018-01-04 17:43] LABS: ALANINE AMINOTRANSFERASE 32 U/L (12-78); ALBUMIN 3.7 G/DL (3.4-5.0); ALKALINE PHOSPHATASE 91 U/L (46-116); ASPARTATE AMINO TRANSFERASE 36 U/L (15-37); BILIRUBIN,TOTAL 0.2 MG/DL (0.2-1.0)
[2018-01-04] MEDS ORDERED: GABAPENTIN300 MG ORAL (18:15)
[2018-01-04 18:30] VITALS: BP 157/88
--- NOTE | 2018-01-05 12:03 | Diagnostic Imaging Report ---
Indication: Chest pain Technique: One view of the chest Comparison: 08/28/2017 Findings: Lungs and pleural spaces are clear. Heart size is normal. No significant change Impression: No acute process
--- NOTE | 2018-01-05 16:08 | Cardiology Report ---
APPROVED REPORT EKG Measurement Heart [id number] Sinus rhythm with marked sinus arrhythmia Minimal voltage criteria for LVH, may be normal variant Borderline ECG
== END 2018-01-04 18:32 | disposition home or self-care (01) ==
LOC: EMR 17:16
DX: R25.3 Fasciculation (principal); R00.2 Palpitations; M54.12 Radiculopathy, cervical region
CPT/HCPCS: 36415; 71045; 80053; 80307; 81003; 84484; 85025; 93005; 99284

== ENCOUNTER 2019-10-01 15:11 | Emergency (ER) | payer MEDICARE, MEDICAID ==
[~2019-10-01] VITALS: Ht 165.1 cm; Wt 72.6 kg
[2019-10-01 15:21] VITALS: BP 164/73
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
[2019-10-01 16:04] LABS: APPEARANCE,URINE SLIGHTLY CLOUDY; BILIRUBIN, URINE NEGATIVE (NEGATIVE); GLUCOSE, URINE (UA) NEGATIVE (NEGATIVE); KETONES,URINE NEGATIVE (NEGATIVE); LEUKOCYTE ESTERASE ,URINE 3+ (NEGATIVE); NITRITE,URINE NEGATIVE (NEGATIVE); PH,URINE 5 (4.5-8.0); PROTEIN,URINE 2+ (NEGATIVE); UROBILINOGEN,URINE NORMAL MG/DL (0.0-1.0)
[2019-10-01 16:09] LABS: ANION GAP 11 mmol/L (5-15); BLOOD UREA NITROGEN 18 mg/dL (7-18); CALCIUM 8.9 MG/DL (8.5-10.1); CARBON DIOXIDE 28 MMOL/L (21-32); CHLORIDE 104 MMOL/L (98-107); CREATININE 1.7 MG/DL (0.55-1.30); POTASSIUM 4.9 MMOL/L (3.5-5.1); SODIUM 143 MMOL/L (136-145)
[2019-10-01 16:17] LABS: ALANINE AMINOTRANSFERASE 19 U/L (12-78); ALBUMIN 3.5 G/DL (3.4-5.0); ALBUMIN/GLOBULIN RATIO 0.9 (1.0-2.7); ALKALINE PHOSPHATASE 124 U/L (46-116); ASPARTATE AMINO TRANSFERASE 22 U/L (15-37); BILIRUBIN,TOTAL 0.2 MG/DL (0.2-1.0); CREATINE KINASE 97 U/L (26-308)
[2019-10-01 16:23] LABS: COLOR,URINE YELLOW
[2019-10-01 16:23] LABS: HEMATOCRIT 26.9 % (37.0-47.0); HEMOGLOBIN 7.9 G/DL (12.0-16.0); MEAN CORPUSCULAR VOLUME 96 FL (80-99); PLATELET COUNT 185 K/UL (150-450); RED BLOOD COUNT 2.82 M/UL (4.20-5.40); RED CELL DISTRIBUTION WIDTH 16.8 % (11.6-14.8); WHITE BLOOD COUNT 6.6 K/UL (4.8-10.8)
[2019-10-01] MEDS ORDERED: TYLENOL325 MG ORAL (16:34)
[2019-10-01] MEDS ORDERED: PRENATABS RX T1 EACH PO (16:34)
== END 2019-10-01 16:47 | disposition home or self-care (01) ==
LOC: EMR 15:32
DX: D64.9 Anemia, unspecified (principal); N28.9 Disorder of kidney and ureter, unspecified; Z98.890 Other specified postprocedural states; F12.90 Cannabis use, unspecified, uncomplicated; I10 Essential (primary) hypertension; R42 Dizziness and giddiness
CPT/HCPCS: 36415; 80053; 81003; 82550; 83880; 84484; 85007; 85025; 85610; 85730; 86850; 86900; 86901; 93005; 96360; 96361; 99284; J7030